=== PATIENT | female | born 1985 | race Two or more races ===

== ENCOUNTER 2019-09-19 19:34 | Emergency (ER) | payer MEDICAID ==
[~2019-09-19] VITALS: Ht 162.6 cm; Wt 74.8 kg
[2019-09-19 19:52] VITALS: BP 115/76
== END 2019-09-19 20:55 | disposition left against medical advice (07) ==
LOC: ER 19:34
DX: R22.0 Localized swelling, mass and lump, head (principal); M79.89 Other specified soft tissue disorders; Z53.21 Procedure and treatment not carried out due to patient leaving prior to being seen by health care provider; Y04.2XXA Assault by strike against or bumped into by another person, initial encounter; Y93.89 Activity, other specified; Y92.89 Other specified places as the place of occurrence of the external cause; Y99.8 Other external cause status
CPT/HCPCS: 70450; 70486; 72125; 73130